=== PATIENT | male | born 1965 | race Caucasian/White ===

== ENCOUNTER 2019-07-12 06:34 | Day surgery (SDC) | payer OTHER ==
[2019-07-12] MEDS ORDERED: Midazolam 1 MG/ML 2 ML SDV ONE (07:01)
[2019-07-12] MEDS ORDERED: Propofol 200 MG/20 ML SDV ONE (07:01)
[2019-07-12] MEDS ORDERED: fentaNYL 100 MCG/2 ML SDV ONE (07:01)
[2019-07-12] MEDS: Sodium Chloride 0.9% 1,000 ML IV SCH (07:11)
--- NOTE | 2019-07-12 09:07 | OR ---
DATE OF PROCEDURE: 07/12/2019 SURGEON: Abdirahman Tran MD PROCEDURE: Colonoscopy. FINDINGS: Sigmoid colon polyp, approximately 5 mm, completely removed using hot snare forceps device. COMPLICATION: None. GUIDE ESCORT: None. PREOPERATIVE DIAGNOSIS: Screening colonoscopy. POSTOPERATIVE DIAGNOSIS: Screening colonoscopy. RISKS: Risks, benefits, alternatives, and limitations including, but not limited to infection, bleeding, and perforation were explained to the patient, who wished to proceed. PROCEDURE IN DETAIL: The patient was placed in left lateral decubitus position. Digital rectal exam was performed without abnormality. Scope was introduced and advanced atraumatically to the ileocecal valve. Photo was taken of this. Scope was brought back through the ascending, transverse, descending colon, and retroflexed. No evidence of old or new blood. No diverticulosis. The patient did have a small polyp, which was completely removed and sent to pathology. No abnormalities on retroflexion. The patient tolerated the procedure well. Abdirahman Tran MD /[id number]
[2019-07-12 09:14] VITALS: BP 126/80; PULSE 68
== END 2019-07-12 09:19 | disposition home or self-care (01) ==
LOC: JP.SDS 06:34
PROVIDERS: ATTEND Surgery
DX: Z12.11 Encounter for screening for malignant neoplasm of colon (principal); K63.5 Polyp of colon; I10 Essential (primary) hypertension
CPT/HCPCS: 88305; J2250; J2704; J3010; J7030